=== PATIENT | female | born 1960 | race Caucasian/White ===

== ENCOUNTER 2016-10-22 05:29 | Inpatient (IN) | payer OTHER ==
--- NOTE | 2016-10-22 05:36 | PDOC ---
[id number] 4d LEFT GROIN PAIN Time Seen by Provider: 10/22/16 05:36 - History of Present Illness Initial Comments: 10/22/16 05:53 This 56-year-old woman with a history of hypertension/cholecystectomy/right- sided renal colic 1 year ago presents with approximately 18 hour history of left lower quadrant abdominal/left groin pain. Patient states that she stood up from a seated position at work at approximately 1 PM; she experienced sharp pain in the left lower abdominal area. Since then, she has had pain in the area especially with movement and walking. She is generally comfortable at rest. 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 She admits to mild nausea but this has been going on for a few weeks. no fever/chills/change in bowel habits. Last bowel movement was yesterday morning and was normal. There has been no dysuria/hematuria or urinary frequency. Patient has not had any flank or CVA pain No history of diverticular disease; patient has not had colonoscopy Medications Tenormin 25 mg BID No known ALLERGIES Patient denies smoking; alcohol use or other recreational drug use PMD: Dr Pacheco Past History - Past Medical History Allergies/Adverse Reactions: Allergies Allergy/AdvReac Type Severity Reaction Status Date / Time No Known Allergies Allergy Verified 10/22/16 05:31 Home Medications: Ambulatory Orders Atenolol [Tenormin -] 25 mg PO BID 10/23/14 Amox-Tr/K Cl [Augmentin 875-125mg Tablet -] 1 tab PO BID@0800,1730 #20 tablet HTN: Yes - Surgical History Cholecystectomy: Yes - Psycho/Social/Smoking Cessation Hx Anxiety: No Suicidal Ideation: No Smoking Status: Yes Smoking History: Never smoked Number of Cigarettes Smoked Daily: 20 Hx Alcohol Use: Yes ([facility]) Substance Use Type: None Review of Systems - Review of Systems Able to Perform ROS?: Yes Comments:: 12 point review of systems is negative except for what is noted in the history of present illness *Physical Exam - Physical Exam Comments: GENERAL:morbidly obese, adult female anxious but in no acute distress HEAD: Normal with no signs of trauma. EYES: PERRLA, EOMI, sclera anicteric, conjunctiva clear. ENT: Ears normal, nares patent, oropharynx clear without exudates. Dry mucous membranes. NECK: Normal range of motion, supple without lymphadenopathy, JVD, or masses. LUNGS: Breath sounds equal, clear to auscultation bilaterally. No wheezes, and no crackles. HEART:Regular rate and rhythm, normal S1 and S2 without murmur, rub or gallop. ABDOMEN:.normal bowel sounds; obese, soft; Point tenderness LLQ without rebound ; no masses pain reproduced with left hip flexion EXTREMITIES: Normal range of motion, no edema. No clubbing or cyanosis. No erythema, or tenderness. NEUROLOGICAL: Cranial nerves II through XII grossly intact. Normal speech. No focal neurological deficits. MUSCULOSKELETAL: Back non-tender to palpation, no CVA tenderness SKIN: Warm, Dry, normal turgor, no rashes or lesions noted. ED Treatment Course - LABORATORY CBC & Chemistry Diagram: 10/23/16 07:00 10/23/16 07:00 Medical Decision Making - Medical Decision Making This 56-year-old woman presents with 18 hour history of intermittent sharp left lower quadrant abdominal/left groin pain. Pain is particularly severe with movement and first occurred when patient arose from a seated position. This is suggestive of musculoskeletal etiology. However, physical exam reveals point tenderness in the left lower quadrant of the abdomen. Although she does not have significant associated symptoms of fever/change in bowel habits/urinary symptoms, diverticulitis/renal stone still possibility. CBC, gastric, urinalysis will be sent Abdominal/pelvic CT will be performed Patient currently refusing any analgesia 10/22/16 06:43 White blood cell count mildly elevated at 11,100 Urinalysis shows 2+ LE, microscopic analysis shows 6 RBC/26WBC/rare epi/rare bact Case signed out to incoming physician at end of shift *DC/Admit/Observation/Transfer Diagnosis at time of Disposition: Acute diverticulitis - Discharge Dispostion Condition at time of disposition: Stable - Prescriptions
[2016-10-22 06:33] LABS: BASOPHIL 0.6 % (0-2.0); EOSINOPHIL 2.8 % (0-4.5); MCHC 33.7 g/dl (32.0-36.0); MEAN CELL VOLUME 86.2 fl (80-96); MEAN PLT VOLUME 8.9 fl (7.5-11.1); NEUTROPHILS 67.1 % (42.8-82.8); PLATELET COUNT 297 K/MM3 (134-434); RDW 13.1 % (11.6-15.6); WHITE BLOOD COUNT 11.1 K/mm3 (4.0-10.0)
[2016-10-22 06:34] LABS: URINE APPEARANCE CLEAR; URINE BILIRUBIN NEGATIVE (NEGATIVE); URINE COLOR YELLOW; URINE GLUCOSE (UA) NEGATIVE (NEGATIVE); URINE KETONE NEGATIVE (NEGATIVE); URINE NITRITE NEGATIVE (NEGATIVE); URINE PROTEIN NEGATIVE (NEGATIVE); URINE UROBILINOGEN NEGATIVE E.U./dl (0.2-1.0)
[2016-10-22 06:35] LABS: URINE BLOOD 1+ (NEGATIVE); URINE LEUK ESTERASE 2+ (NEGATIVE)
[2016-10-22 06:36] LABS: URINE BACTERIA RARE /hpf (NONE SEEN); URINE HYALINE CAST 2 /lpf; URINE MUCUS RARE; URINE RBC 6 /hpf (0-3); URINE WBC 26 /hpf (3-5)
[2016-10-22 06:51] LABS: ALBUMIN 3.4 g/dl (3.4-5.0); ALK PHOS 88 U/L (45-117); ANION GAP 8 (8-16); BILIRUBIN,TOTAL 0.7 mg/dL (0.2-1.0); CALCIUM 8.6 mg/dL (8.5-10.1); CO2 26 mmol/L (21-32); CREATININE 0.8 mg/dL (0.55-1.02); GLUCOSE,RANDOM 89 mg/dL (74-106); SGOT/AST 7 U/L (15-37); SGPT/ALT 19 U/L (12-78); TOT PROT 6.9 g/dl (6.4-8.2)
--- NOTE | 2016-10-22 08:23 | PDOC ---
*Physical Exam - Vital Signs Last Vital Signs Temp Pulse Resp BP Pulse Ox 98 F 85 18 168/98 100 10/22/16 05:33 10/22/16 05:33 10/22/16 05:33 10/22/16 05:33 10/22/16 05:33 - Physical Exam Comments: 10/22/16 08:23 SIGN IN Sign-out received from outgoing Emergency Physician Pt interviewed and examined Ancillary studies reviewed Awaiting CT scan Vital Signs - 24 hr 10/22/16 05:33 Temperature 98 F Pulse Rate 85 Respiratory 18 Rate Blood Pressure 168/98 O2 Sat by Pulse 100 Oximetry (%) This 56-year-old woman with a history of hypertension/cholecystectomy/right- sided renal colic 1 year ago presents with approximately 18 hour history of left lower quadrant abdominal/left groin pain. 10/22/16 09:39 CT scan of the abdomen and pelvis with oral and IV contrast Evidence for acute diverticulitis of the distal descending colon without abscess formation There is also trace ?pneumopericardium of uncertain etiology Discussed with Dr. [id number] see patient in consultation 10/22/16 10:36 Multiple calls placed to Dr. Bronson both office and cell phone Dr. Bronson called back-will admit 10/22/16 10:47 Laboratory Results - last 24 hr 10/22/16 10/22/16 10/22/16 05:50 05:50 05:50 WBC 11.1 H RBC 4.82 Hgb 14.0 Hct 41.6 MCV 86.2 MCHC 33.7 RDW 13.1 Plt Count 297 MPV 8.9 Neutrophils % 67.1 Lymphocytes % 22.7 Monocytes % 6.8 Eosinophils % 2.8 Basophils % 0.6 Sodium 141 Potassium 4.4 Chloride 107 Carbon Dioxide 26 Anion Gap 8 BUN 15 Creatinine 0.8 Creat Clearance w eGFR > 60 Random Glucose 89 Calcium 8.6 Total Bilirubin 0.7 AST 7 L ALT 19 Alkaline Phosphatase 88 Total Protein 6.9 Albumin 3.4 Urine Color Yellow Urine Appearance Clear Urine pH 5.0 Ur Specific [place] 1.018 Urine Protein Negative Urine Glucose (UA) Negative Urine Ketones Negative Urine Blood 1+ H Urine Nitrite Negative Urine Bilirubin Negative Urine Urobilinogen Negative Ur Leukocyte Esterase 2+ H Urine RBC 6 Urine WBC 26 Ur Epithelial Cells Rare Urine Bacteria Rare Hyaline Casts 2 Urine Mucus Rare 10/22/16 10:49 EKG Normal sinus rhythm 73, normal axis Normal AV and IV conduction time Normal EKG ED Treatment Course - LABORATORY CBC & Chemistry Diagram: 10/23/16 07:00 10/23/16 07:00 - ADDITIONAL ORDERS Additional order review: Laboratory Results 10/22/16 10/22/16 05:50 05:50 Sodium 141 Potassium 4.4 Chloride 107 Carbon Dioxide 26 Anion Gap 8 BUN 15 Creatinine 0.8 Creat Clearance w eGFR > 60 Random Glucose 89 Calcium 8.6 Total Bilirubin 0.7 AST 7 L ALT 19 Alkaline Phosphatase 88 Total Protein 6.9 Albumin 3.4 Urine Color Yellow Urine Appearance Clear Urine pH 5.0 Ur Specific [place] 1.018 Urine Protein Negative Urine Glucose (UA) Negative Urine Ketones Negative Urine Blood 1+ H Urine Nitrite Negative Urine Bilirubin Negative Urine Urobilinogen Negative Ur Leukocyte Esterase 2+ H Urine RBC 6 Urine WBC 26 Ur Epithelial Cells Rare Urine Bacteria Rare Hyaline Casts 2 Urine Mucus Rare 10/22/16 05:50 RBC 4.82 MCV 86.2 MCHC 33.7 RDW 13.1 MPV 8.9 Neutrophils % 67.1 Lymphocytes % 22.7 Monocytes % 6.8 Eosinophils % 2.8 Basophils % 0.6 *DC/Admit/Observation/Transfer Diagnosis at time of Disposition: Acute diverticulitis - Discharge Dispostion Condition at time of disposition: Stable Admit: Yes - Prescriptions - Referrals
[2016-10-22] MEDS ORDERED: METRONIDAZOLE 500 MG PREMIXED 100 ML IVPB ONE ×2 (09:40→10:14)
[2016-10-22] MEDS ORDERED: LEVOFLOXACIN 500 MG IVPB 100 ML IVPB ONE ×2 (09:40→10:14)
[2016-10-22] MEDS ORDERED: KETOROLAC TROMETHAMINE 15 MG/ML VIAL IVPUSH ONE (10:14)
[2016-10-22] MEDS ORDERED: KETOROLAC TROMETHAMINE 30 MG/1 ML VIAL ONE (10:14)
--- NOTE | 2016-10-22 12:27 | CONSULT ---
Consult - text type - Consultation Consultation Note: CARDIOLOGY ASKED BY DR. Canela TO SEE PT. 56 YO FEMALE LEFT LOWER QUADRANT PAIN. PT SEEN, EXAMINED. ECG CT SCAN REVIEWED. WORKING DX: ACUTE DIVERTICULITIS ABNORMAL PERICARDIUM ON CT SCAN: ARTIFACT PRODUCING APPEARANCE OF AIR IN PERICARDIAL SAC. HIGHLY DOUBT GAS FORMING INFECTION. NO EVIDENCE TO SUGGEST ESOPHAGEAL RUPTURE /FISTULA . REC TREATMENT FOR ACUTE DIVERTICULITIS. ECHOCARDIOGRAM. DIRECTED BY IM. THANKS. FULL NOTE DICTATED. WILL FOLLOW.
--- NOTE | 2016-10-22 15:26 | HP ---
Admitting History and Physical - Primary Care Physician PCP: Jeni Bronson - Admission Chief Complaint: abdominalpain History of Present Illness: This 56-year-old woman with a history of hypertension/cholecystectomy/right- sided renal colic 1 year ago presents with approximately 18 hour history of left lower quadrant abdominal/left groin pain. Patient states that she stood up from a seated position at work at approximately 1 PM; she experienced sharp pain in the left lower abdominal area. Since then, she has had pain in the area especially with movement and walking. She is generally comfortable at rest. 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 She admits to mild nausea but this has been going on for a few weeks. no fever/chills/change in bowel habits. Last bowel movement was yesterday morning and was normal. - Past Medical History Cardiovascular: Yes: HTN - Smoking History Smoking history: Never smoked Have you smoked in the past 12 months: No Aproximately how many cigarettes per day: 20 - Alcohol/Substance Use Hx Alcohol Use: Yes (OCC) Home Medications - Allergies Allergies/Adverse Reactions: Allergies Allergy/AdvReac Type Severity Reaction Status Date / Time No Known Allergies Allergy Verified 10/22/16 05:31 - Home Medications Home Medications: Ambulatory Orders Atenolol [Tenormin -] 25 mg PO BID 10/23/14 Amox-Tr/K Cl [Augmentin 875-125mg Tablet -] 1 tab PO BID@0800,1730 #20 tablet Physical Examination Vital Signs: Vital Signs Temperature 98.1 F 10/22/16 10:40 Pulse Rate 69 10/22/16 10:40 Respiratory Rate 16 10/22/16 10:40 Blood Pressure 151/85 10/22/16 10:40 O2 Sat by Pulse Oximetry (%) 98 10/22/16 10:40 Constitutional: Yes: No Distress HENT: Yes: Atraumatic Neck: Yes: Supple Cardiovascular: Yes: Regular Rate and Rhythm Respiratory: Yes: CTA Bilaterally Gastrointestinal: Yes: Normal Bowel Sounds Extremities: Yes: WNL Neurological: Yes: Alert, Oriented Problem List - Problems (1) Acute diverticulitis Assessment/Plan: npo ivf iv abx gi/id consult Code(s): K57.92 - DVTRCLI OF INTEST, PART UNSP, W/O PERF OR ABSCESS W/O BLEED (2) Flank pain, acute Assessment/Plan: due to above prn pain meds Code(s): R10.9 - UNSPECIFIED ABDOMINAL PAIN Assessment/Plan Laboratory Tests 10/22/16 10/22/16 10/22/16 05:50 05:50 05:50 WBC 11.1 H RBC 4.82 Hgb 14.0 Hct 41.6 MCV 86.2 MCHC 33.7 RDW 13.1 Plt Count 297 MPV 8.9 Neutrophils % 67.1 Lymphocytes % 22.7 Monocytes % 6.8 Eosinophils % 2.8 Basophils % 0.6 Sodium 141 Potassium 4.4 Chloride 107 Carbon Dioxide 26 Anion Gap 8 BUN 15 Creatinine 0.8 Creat Clearance w eGFR > 60 Random Glucose 89 Calcium 8.6 Total Bilirubin 0.7 AST 7 L ALT 19 Alkaline Phosphatase 88 Total Protein 6.9 Albumin 3.4 Urine Color Yellow Urine Appearance Clear Urine pH 5.0 Ur Specific [place] 1.018 Urine Protein Negative Urine Glucose (UA) Negative Urine Ketones Negative Urine Blood 1+ H Urine Nitrite Negative Urine Bilirubin Negative Urine Urobilinogen Negative Ur Leukocyte Esterase 2+ H Urine RBC 6 Urine WBC 26 Ur Epithelial Cells Rare Urine Bacteria Rare Hyaline Casts 2 Urine Mucus Rare
[2016-10-22] MEDS ORDERED: HYDROmorphone HCL CARPU-JECT 1 MG/1 ML DISP.SYRIN IVPB PRN (15:33)
--- NOTE | 2016-10-22 15:43 | CONS ---
DATE OF CONSULTATION: 10/22/2016 REQUESTING PHYSICIAN: Cindy Tom MD PATIENT PROFILE: The patient is a 56-year-old female admitted on October 22, 2016, because of abdominal pain. The patient has no known heart disease, there is no history of a myocardial infarction, angina, congestive heart failure, or rhythm disturbance. She underwent a stress test about 2 years ago because of chest pain and was diagnosed having musculoskeletal pain, i.e., Tietze syndrome. She complained of palpitations 1 to 2 weeks ago and underwent a Holter monitor, the results of which are pending. She was then in her usual state of health until the night prior to admission, when she experienced left lower quadrant pain which became more severe on the morning of admission. She came to the emergency room, where a CAT scan of the abdomen was consistent with acute diverticulitis. On cuts of the chest cavity, she was found to have what was thought to be a pneumopericardium. A cardiology consultation was then requested. The patient has no history of diabetes or hyperlipidemia. She has known hypertension, controlled with beta meron therapy. She smoked in the past, stopping 30 years ago. MEDICATIONS ON ADMISSION: Atenolol. SOCIAL HISTORY: She lives alone at home. She manages her own affairs. She is a business support associate. There is no history of alcohol abuse. PRIOR MEDICAL HISTORY: Status post cholecystectomy, knee surgery, eye surgery, chronic obesity, hypertension. FAMILY HISTORY: Her mother of renal failure and hypertension. Her father of a myocardial infarction at age 69. REVIEW OF SYSTEMS: General: No fever or chills. Gastrointestinal: No melena, no vomiting. Pulmonary: No history of chest trauma. No hemoptysis. Neurological: No focal deficit. EXAMINATION: General: On examination, the patient appears overweight, in no distress, lying flat. Vital Signs: Temperature afebrile. Pulse 70. Blood pressure is 168/98 to 150/85. The oxygen saturation is 98% om ambient air. The respiratory rate is 18 per minute. Neck: There is no neck vein distention. There is no carotid bruit. Lungs: The lung yeh are clear. Heart: The heart sounds are normal. No murmur, no gallop. No pericardial friction rub is audible. The PMI is indistinct. The heart sounds are somewhat distant. No diastolic sounds are appreciated. Abdomen: Obese. There is a well-healed surgical scar. There is left lower quadrant tenderness. Extremities: There is no peripheral edema. Neurological: There is no focal neurological deficit. DATABASE: The electrocardiogram demonstrates sinus rhythm, normal tracing. Laboratory studies of note includes a white blood cell count of 11.1, hematocrit 41%, platelet count of 297,000. The electrolytes are normal, BUN 15, creatinine 0.8. The urinalysis is negative for protein and negative for glucose. IMPRESSION: The working diagnosis of acute diverticulitis. The abnormal pericardium seen on CAT scan is most likely an artifact producing the appearance of air in the pericardial sac. The differential diagnosis would include a gas-forming infection, which would be untenable in this setting as the patient would be far sicker than her presentation would suggest. There is no evidence to suggest an esophageal rupture with fistula formation, which could also conceivably cause a pneumopericardium. I have recommended the followin. Treatment for acute diverticulitis. 2. Echocardiogram. 3. Chest x-ray, PA and lateral projection. 4. Workup and therapy as directed by Internal Medicine. Thank you for allowing me to take part in the care of this pleasant patient. Will follow with you. ROSA HERNADEZ M.D. RUPA/[id number] Cc: MD Cindy Woody MD Rukhshinda Hameedi, MD
[2016-10-22] MEDS ORDERED: SODIUM CHLORIDE 1,000 ML IV SCH (15:45)
[2016-10-22 17:22] VITALS: BMI 34.3
[2016-10-22] MEDS ORDERED: METRONIDAZOLE 500 MG PREMIXED 100 ML IVPB SCH (18:00)
[2016-10-22] MEDS: ATENOLOL 25 MG TABLET (FP) PO SCH (21:36)
[2016-10-22] MEDS ORDERED: ONDANSETRON 4 MG/2 ML VIAL ONE (21:56)
[2016-10-22] MEDS ORDERED: ONDANSETRON 4 MG/2 ML VIAL IVPB ONE (22:03)
[2016-10-22] MEDS ORDERED: ONDANSETRON 4 MG/2 ML VIAL IVPB PRN (23:39)
[2016-10-23] MEDS ORDERED: METRONIDAZOLE 500 MG PREMIXED 100 ML IVPB SCH (02:00)
[2016-10-23 08:36] LABS: BASOPHIL 0.5 % (0-2.0); EOSINOPHIL 0.1 % (0-4.5); MCH 27.8 pg (25.7-33.7); MCHC 31.9 g/dl (32.0-36.0); MEAN CELL VOLUME 87.3 fl (80-96); RDW 12.2 % (11.6-15.6); WHITE BLOOD COUNT 8.5 K/mm3 (4.0-10.0)
[2016-10-23 09:04] LABS: PLATELET COUNT 274 K/MM3 (134-434)
[2016-10-23 09:07] LABS: ALBUMIN 3.3 g/dl (3.5-5.0); ALK PHOS 67 U/L (32-92); ANION GAP 8 (8-16); BILIRUBIN,TOTAL 0.3 mg/dl (0.2-1.0); CO2 25 mmol/L (22-28); CREATININE 0.7 mg/dl (0.6-1.3); GLUCOSE,RANDOM 94 mg/dl (74-106); SGOT/AST 13 U/L (10-42); SGPT/ALT 14 U/L (10-40); TOT PROT 6.5 g/dl (6.4-8.3)
[2016-10-23] MEDS: ATENOLOL 25 MG TABLET (FP) PO SCH (09:26)
--- NOTE | 2016-10-23 09:54 | EKG ---
Test Reason : Blood Pressure : / mmHG Vent. Rate : 073 BPM Atrial Rate : 073 BPM P-R Int : 148 ms QRS Dur : 088 ms QT Int : 410 ms P-R-T Axes : 055 014 016 degrees QTc Int : 451 ms NORMAL SINUS RHYTHM NORMAL ECG NO PREVIOUS ECGS AVAILABLE Confirmed by VIDAL NIELSON MD ([id number]) on 10/23/2016 9:54:00 AM Referred By: EDILSON NEUMANN Confirmed By:VIDAL NIELSON MD
[2016-10-23] MEDS ORDERED: LEVOFLOXACIN 500 MG IVPB 100 ML IVPB SCH (10:00)
--- NOTE | 2016-10-23 10:11 | PN ---
Progress Note (short form) - Note Progress Note: Patient seen and consult dictated. Patient with acute diverticulitis (left? sigmoid) - doing better on IV antibiotics (now on Cipro alone; had ?rxn to Flagyl). Tolerating some PO liquids and would continue on liquids today. If improving WBC and abdominal pain, consider switch to PO antibiotics (either Augmentin or Cipro alone) x 10day course). Will followup as outpatient.
--- NOTE | 2016-10-23 12:15 | PN ---
Progress Note, Physician History of Present Illness: on clear liquid wants to go home - Current Medication List Current Medications: Active Medications Atenolol (Tenormin -) 25 mg PO BID [facility] Last Admin: 10/23/16 09:26 Dose: 25 mg Hydromorphone HCl (Dilaudid Injection -) 1 mg IVPB Q3H PRN PRN Reason: PAIN Last Admin: 10/22/16 17:42 Dose: 1 mg Sodium Chloride (Normal Saline -) 1,000 mls @ 75 mls/hr IV ASDIR [facility] Last Admin: 10/22/16 17:00 Dose: 75 mls/hr Levofloxacin (Levaquin 500 Mg Premixed Ivpb -) 100 mls @ 100 mls/hr IVPB DAILY [facility] Last Admin: 10/23/16 09:26 Dose: 100 mls/hr Ondansetron HCl (Zofran Injection) 4 mg IVPB Q4H PRN PRN Reason: NAUSEA AND/OR VOMITING Last Admin: 10/23/16 01:31 Dose: 4 mg - Objective Vital Signs: Vital Signs Temperature 98.8 F 10/23/16 05:24 Pulse Rate 81 10/23/16 05:24 Respiratory Rate 18 10/23/16 07:49 Blood Pressure 155/67 10/23/16 05:24 O2 Sat by Pulse Oximetry (%) 94 L 10/23/16 07:49 Constitutional: Yes: No Distress HENT: Yes: Atraumatic Neck: Yes: Supple Cardiovascular: Yes: Regular Rate and Rhythm Respiratory: Yes: CTA Bilaterally Gastrointestinal: Yes: Normal Bowel Sounds, Other (non tender) Extremities: Yes: WNL Labs: CBC, BMP 10/23/16 07:00 10/23/16 07:00 Problem List - Problems (1) Acute diverticulitis Code(s): K57.92 - DVTRCLI OF INTEST, PART UNSP, W/O PERF OR ABSCESS W/O BLEED (2) Flank pain, acute Code(s): R10.9 - UNSPECIFIED ABDOMINAL PAIN Assessment/Plan 1.diverticulitis doing better advance diet as tolerated id to see and suggest po abx
--- NOTE | 2016-10-23 12:54 | CONSULT ---
Consult Consult Specialty:: infectious diseases Reason for Consultation:: diverticulitis - History of Present Illness Chief Complaint: abd pain History of Present Illness: 56-year-old woman with a history of hypertension/cholecystectomy/right-sided renal colic 1 year ago presents with approximately 18 hour history of left lower quadrant abdominal/left groin pain. Patient states that she stood up from a seated position at work at approximately 1 PM; she experienced sharp pain in the left lower abdominal area. Since then, she has had pain in the area especially with movement and walking. She is generally comfortable at rest. 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 She admits to mild nausea but this has been going on for a few weeks. no fever/chills/change in bowel habits. Last bowel movement was yesterday morning and was normal. patient came to the hospital because of pain and was worked up and was found to ahve diverticulitis when i examined the patient she still has pain in the left lower quadrant - History Source History Provided By: Patient Limitations to Obtaining History: No Limitations - Past Medical History Cardio/Vascular: Yes: HTN ...: No - Alcohol/Substance Use Hx Alcohol Use: Yes (OCC) - Smoking History Smoking history: Never smoked Have you smoked in the past 12 months: No Aproximately how many cigarettes per day: 20 Home Medications - Allergies Allergies/Adverse Reactions: Allergies Allergy/AdvReac Type Severity Reaction Status Date / Time No Known Allergies Allergy Verified 10/22/16 05:31 - Home Medications Home Medications: Ambulatory Orders Atenolol [Tenormin -] 25 mg PO BID 10/23/14 Review of Systems - Review of Systems Constitutional: reports: No Symptoms Eyes: reports: No Symptoms HENT: reports: No Symptoms Neck: reports: No Symptoms Cardiovascular: reports: No Symptoms Respiratory: reports: No Symptoms Gastrointestinal: reports: Abdominal Pain, Other Musculoskeletal: reports: No Symptoms Neurological: reports: No Symptoms Endocrine: reports: No Symptoms Hematology/Lymphatic: reports: No Symptoms Psychiatric: reports: No Symptoms Physical Exam Vital Signs: Vital Signs Temperature 98.8 F 10/23/16 05:24 Pulse Rate 81 10/23/16 05:24 Respiratory Rate 18 10/23/16 07:49 Blood Pressure 155/67 10/23/16 05:24 O2 Sat by Pulse Oximetry (%) 94 L 10/23/16 07:49 Constitutional: Yes: Well Nourished, Obese Eyes: Yes: Conjunctiva Clear HENT: Yes: Atraumatic, Normocephalic Neck: Yes: Supple Cardiovascular: Yes: Regular Rate and Rhythm Respiratory: Yes: Regular, CTA Bilaterally Gastrointestinal: Yes: Soft, Tenderness (left lower quadrant) Musculoskeletal: Yes: WNL Extremities: Yes: WNL Neurological: Yes: Alert, Oriented Psychiatric: Yes: Alert Labs: CBC, BMP 10/23/16 07:00 10/23/16 07:00 Imaging - Results Chest X-ray: Report Reviewed, Image Reviewed Cat Scan: Report Reviewed, Image Reviewed Assessment/Plan Problem List - Problems (1) Acute diverticulitis Code(s): K57.92 - DVTRCLI OF INTEST, PART UNSP, W/O PERF OR ABSCESS W/O BLEED (2) Flank pain, acute Code(s): R10.9 - UNSPECIFIED ABDOMINAL PAIN patient still has abdominal pain I would prefer her to be on iv abx for couple of days,but patient does want to stay i am worried that the patient might come back I have started her on oral abx i hope it is effective i have explained her that she might come back to the hospital plan augmentin 875mg twice a day for 10 days hydration
--- NOTE | 2016-10-23 13:11 | PN ---
Progress Note, Physician History of Present Illness: No chest pain or dyspnea. - Current Medication List Current Medications: Active Medications Amoxicillin/Clavulanate Potassium (Augmentin - 875mg Tablet) 1 tab PO BID@0800, 1730 ANNA Atenolol (Tenormin -) 25 mg PO BID ANNA Last Admin: 10/23/16 09:26 Dose: 25 mg Hydromorphone HCl (Dilaudid Injection -) 1 mg IVPB Q3H PRN PRN Reason: PAIN Last Admin: 10/22/16 17:42 Dose: 1 mg Ondansetron HCl (Zofran Injection) 4 mg IVPB Q4H PRN PRN Reason: NAUSEA AND/OR VOMITING Last Admin: 10/23/16 01:31 Dose: 4 mg - Objective Vital Signs: Vital Signs Temperature 98.8 F 10/23/16 05:24 Pulse Rate 81 10/23/16 05:24 Respiratory Rate 18 10/23/16 07:49 Blood Pressure 155/67 10/23/16 05:24 O2 Sat by Pulse Oximetry (%) 94 L 10/23/16 07:49 Constitutional: Yes: Well Nourished, No Distress Eyes: Yes: Conjunctiva Clear, EOM Intact HENT: Yes: Atraumatic, Normocephalic Cardiovascular: Yes: Regular Rate and Rhythm. No: JVD, Murmur Respiratory: Yes: CTA Bilaterally Edema: No Labs: CBC, BMP 10/23/16 07:00 10/23/16 07:00 Assessment/Plan 56 yo female admitted with left lower quadrant pain and currenlty being treated for diverticulitis. Cardiology consulted for reporeted "mild pneumopericardium" on abd CT Likely ARTIFACT PRODUCING APPEARANCE OF AIR IN PERICARDIAL SAC. HIGHLY DOUBT GAS FORMING INFECTION. NO EVIDENCE TO SUGGEST ESOPHAGEAL RUPTURE /FISTULA . Echocardiogram was unremarkable. No abnormalities of pericardium was noted. RECS: No further cardiac work-up or intervention is clinically indicated. Will see prn. Please call with questions.
[2016-10-23 14:13] VITALS: BP 117/59; PULSE 70; TEMP 99.4
--- NOTE | 2016-10-23 16:46 | DS ---
Physical Examination Vital Signs: Vital Signs Temperature 99.4 F 10/23/16 14:12 Pulse Rate 70 10/23/16 14:12 Respiratory Rate 18 10/23/16 14:12 Blood Pressure 117/59 10/23/16 14:12 O2 Sat by Pulse Oximetry (%) 96 10/23/16 14:12 Constitutional: Yes: No Distress HENT: Yes: Atraumatic Neck: Yes: Supple Cardiovascular: Yes: Regular Rate and Rhythm Respiratory: Yes: CTA Bilaterally Gastrointestinal: Yes: Normal Bowel Sounds Extremities: Yes: WNL Neurological: Yes: Alert, Oriented Labs: CBC, BMP 10/23/16 07:00 10/23/16 07:00 Discharge Summary Reason For Visit: ACUTE DIVERTICULITIS Current Active Problems Acute diverticulitis (Acute) Condition: Stable - Instructions Diet, Activity, Other Instructions: if pain gets worse come back to emergency room Referrals: Tavon Pacheco MD [Primary Care Provider] - 2 Weeks Jeni Bronson MD [Staff Physician] - Refugio Pratt MD [Staff Physician] - - Home Medications Comprehensive Discharge Medication List: Ambulatory Orders Atenolol [Tenormin -] 25 mg PO BID 10/23/14 Amox-Tr/K Cl [Augmentin 875-125mg Tablet -] 1 tab PO BID@0800,1730 #20 tablet tolerating diet no pain dc home
[2016-10-23] MEDS ORDERED: AMOX TR/POT CLAV 875MG/125MG TABLETS (FP) PO SCH (17:30)
--- NOTE | 2016-10-24 14:38 | CONS ---
DATE OF CONSULTATION: 10/23/2016 HISTORY OF PRESENT ILLNESS: Asked to evaluate this 56-year-old female with left-sided abdominal pain and diverticulitis. The patient is a 56-year-old female with a history of hypertension and prior cholecystectomy. She states that she developed the relative acute onset of left lower quadrant pain over a period of approximately 1 day described as sharp pain in the left lower quadrant. She presented to the emergency room with the aforementioned complaints as well as some mild nausea but no fever or chills. In the emergency room, she was noted to have an elevated white count of 11.1 and a CAT scan of the abdomen and pelvis showed evidence of diverticulitis involving the distal descending colon. There was no evidence of an abscess formation/collection. The patient was initially started on a combination of IV Cipro and Flagyl. However, she developed some nausea and GI upset, presumably due to Flagyl which was discontinued. She is currently seen, complaining of mild left lower quadrant pain improved from admission. She has had no fever or chills, and her repeat white count is 8.5. She has no prior history of diverticular disease and has not had a prior colonoscopy. She denies any family history of GI illness or malignancy. She has a hemoglobin of 13.4 with a hematocrit of 42% and her chemistries and liver tests are unremarkable. PHYSICAL EXAMINATION: General: She is a well-developed, well-nourished female. HEENT: [place] conjunctivae. Lungs: Clear. Cardiac: Regular rate and rhythm. Abdomen: Soft, flat abdomen with mild discomfort to deep palpation in the left lower quadrant. There was no rebound or guarding. ASSESSMENT: Patient with acute diverticulitis involving the distal descending colon, currently on intravenous Cipro and doing well. RECOMMENDATIONS: Beginning to start on clear liquids and will continue on clear liquids and advance slowly. Would recommend continuing on a low-residue diet for at least several weeks post discharge. If continues to do well, will switch to oral antibiotics with plans for discharge per Dr. Bronson. Will follow as needed, including as an outpatient. Thank you. MARGY LEA M.D. [id number]
== END 2016-10-23 18:06 | disposition home or self-care (01) | DRG 392 ==
LOC: FER 05:29 → FM/S 13:57
PROVIDERS: ADMIT Internal Medicine; ATTEND Internal Medicine
DX: K57.92 Diverticulitis of intestine, part unspecified, without perforation or abscess without bleeding (principal); I10 Essential (primary) hypertension
CPT/HCPCS: 36415; 71020-TC; 74177-TC; 80053; 81003; 81015; 85025; 93005; 93306-TC; 99283-25

== ENCOUNTER 2020-11-28 21:30 | Emergency (ER) | payer BC, OTHER ==
[2020-11-28 21:51] VITALS: BP 166/86; PULSE 79; TEMP 98.4; BMI 29.0
[2020-11-28] MEDS ORDERED: AMOX TR/POT CLAV 500MG/125MG TABLETS (FP) PO ONE ×2 (22:16→22:19)
[2020-11-28] MEDS ORDERED: AMOX TR/POT CLAV 500MG/125MG TABLETS (FP) ONE (22:17)
== END 2020-11-28 22:20 | disposition home or self-care (01) ==
LOC: FER 21:30
PROC: 093K7ZZ Control Bleeding in Nasal Mucosa and Soft Tissue, Via Natural or Artificial Opening (ICD-10-PCS; principal; 2020-11-28)
DX: R04.0 Epistaxis (principal)
CPT/HCPCS: 30901-25; 99283-25